=== PATIENT | female | born 1990 | race African-American/Black ===

== ENCOUNTER 2020-04-21 08:11 | Emergency (ER) | payer MEDICAID ==
[~2020-04-21] VITALS: Ht 160 cm; Wt 46.0 kg
[2020-04-21] MEDS ORDERED: IBUPROFEN 600MG TABLET PO ONE (08:30)
[2020-04-21 08:41] VITALS: BP 121/81
== END 2020-04-21 10:00 | disposition home or self-care (01) ==
LOC: ER 08:31
DX: S90.32XA Contusion of left foot, initial encounter (principal); Z88.0 Allergy status to penicillin; Z97.5 Presence of (intrauterine) contraceptive device; W22.8XXA Striking against or struck by other objects, initial encounter; Y93.89 Activity, other specified; Y92.018 Other place in single-family (private) house as the place of occurrence of the external cause
CPT/HCPCS: 73630; 81025; 99283

== ENCOUNTER 2020-11-01 11:50 | Emergency (ER) | payer MEDICAID, OTHER ==
[~2020-11-01] VITALS: Ht 157.5 cm; Wt 45.0 kg
[2020-11-01 11:55] VITALS: BP 112/74
[2020-11-01 14:24] LABS: CLARITY URINE CLOUDY (CLEAR); COLOR URINE DARK YELLOW (YELLOW); KETONES URINE TRACE (NEGATIVE); LEUKOCYTE ESTERASE URINE 2+ (NEGATIVE); NITRITE URINE POSITIVE (NEGATIVE); OCCULT BLOOD URINE NEGATIVE (NEGATIVE); PROTEIN URINE 1+ (NEGATIVE); SPECIFIC GRAVITY URINE 1.036 (1.005-1.030)
[2020-11-01] MEDS ORDERED: CEFTRIAXONE SODIUM 500 MG/VIAL IM ONE (15:15)
[2020-11-01] MEDS ORDERED: DOXYCYCLINE HYCLATE 100MG CAPSULE PO ONE (15:15)
[2020-11-04 04:08] LABS: NEISSERIA GONORRHOEAE NAA Positive (Negative)
== END 2020-11-01 16:07 | disposition left against medical advice (07) ==
LOC: ER 11:50
DX: Z20.2 Contact with and (suspected) exposure to infections with a predominantly sexual mode of transmission (principal); N39.0 Urinary tract infection, site not specified; Z88.0 Allergy status to penicillin; F12.10 Cannabis abuse, uncomplicated
CPT/HCPCS: 81003; 87077; 87186; 87491; 87591; 99283

== ENCOUNTER 2020-11-24 23:45 | Emergency (ER) | payer OTHER ==
[~2020-11-24] VITALS: Ht 160 cm; Wt 47.7 kg
[2020-11-24 23:57] VITALS: BP 127/91
[2020-11-25] MEDS ORDERED: AZITHROMYCIN 500 MG TABLET PO ONE (00:45)
[2020-11-25] MEDS ORDERED: GENTAMICIN SULF 40MG/ML 2ML VIAL IM ONE (00:45)
[2020-11-25] MEDS ORDERED: DOXY100C5 MT (00:51)
[2020-11-25 01:08] LABS: CLARITY URINE CLOUDY (CLEAR); COLOR URINE YELLOW (YELLOW); KETONES URINE TRACE (NEGATIVE); LEUKOCYTE ESTERASE URINE 3+ (NEGATIVE); NITRITE URINE NEGATIVE (NEGATIVE); OCCULT BLOOD URINE 1+ (NEGATIVE); PH URINE 6.5 (4.5-8.0); PROTEIN URINE 1+ (NEGATIVE)
== END 2020-11-25 02:39 | disposition home or self-care (01) ==
LOC: ER 23:45
DX: A54.9 Gonococcal infection, unspecified (principal); A74.9 Chlamydial infection, unspecified; F12.10 Cannabis abuse, uncomplicated; Z88.0 Allergy status to penicillin
CPT/HCPCS: 81003; 81025; 99283; J1580